=== PATIENT | female | born 1940 | race Caucasian/White ===

== ENCOUNTER 2016-08-20 10:52 | Outpatient (CLI) | payer MEDICARE ==
[2016-08-20 11:56] LABS: ALT (SGPT) 19 U/L (0-55); AST (SGOT) 19 U/L (5-34); Albumin 3.9 g/dL (3.4-4.8); Alkaline Phosphatase 61 U/L (40-150); Anion Gap 13 mmol/L (10-20); BUN (Urea Nitrogen) 25 mg/dL (9.8-20.1); Bilirubin, Total 0.6 mg/dL (0.2-1.2); Calc. Creatinine Clearance 0 mL/min (70-130); Calcium 9.2 mg/dL (7.8-10.44); Carbon Dioxide 23 mmol/L (23-31); Cardiac Risk 4.4 (Less than 4.5); Chloride 110 mmol/L (98-107); Cholesterol 137 mg/dL (< 200 Desired); Estimated GFR-MDRD 50; Globulin 2.9 g/dL (2.4-3.5); Glucose 112 mg/dL (83-110); HDL Cholesterol 31 mg/dL (>60 Neg Risk); LDL Cholesterol, Calculated 55 mg/dL; Potassium 4.5 mmol/L (3.5-5.1); Protein, Total 6.8 g/dL (5.8-8.1); Sodium 141 mmol/L (136-145); Triglycerides 257 mg/dL (Less than 150)
[2016-08-20 12:14] LABS: #Basophils 0.1 thou/uL (0.0-0.2); #Eosinphils 0.1 thou/uL (0.0-0.7); #Lymphocytes 2.1 thou/uL (1.20-3.40); #Monocytes 0.4 thou/uL (0.11-0.59); #Neutrophils 3.5 thou/uL (1.40-6.50); %Basophils 1.2 % (0.0-1.0); %Eosinophils 2.1 % (0.0-10.0); %Lymphocytes 33.3 % (21.0-51.0); %Monocytes 6.7 % (0.0-10.0); %Neutrophils 56.7 % (42.0-75.0); Hemoglobin 13.7 g/dL (12.0-16.0); Mean Corpuscular HGB CONC 33.6 g/dL (32.0-36.0); Mean Corpuscular Hemoglobin 30.6 pg (27.0-31.0); Mean Platelet Volume 10.5 fL (7.4-10.4); Platelet Count 198 thou/uL (130-400); RBC Distribution Width 11.7 % (11.5-14.5); Red Blood Cell (RBC) Count 4.47 mill/uL (4.20-5.40); White Blood Cell (WBC) Count 6.2 thou/uL (4.8-10.8)
== END 2016-08-20 10:53 ==
LOC: HPCALD 10:52
PROVIDERS: ATTEND Family Medicine
DX: I10 Essential (primary) hypertension (principal); E78.5 Hyperlipidemia, unspecified
CPT/HCPCS: 36415; 80053; 80061; 84443; 85025

== ENCOUNTER 2017-02-21 08:31 | Outpatient (CLI) | payer MEDICARE ==
[2017-02-21 11:55] LABS: Anion Gap 15 mmol/L (10-20); BUN (Urea Nitrogen) 22 mg/dL (9.8-20.1); Calc. Creatinine Clearance 0 mL/min (70-130); Calcium 9.4 mg/dL (7.8-10.44); Carbon Dioxide 23 mmol/L (23-31); Chloride 108 mmol/L (98-107); Estimated GFR-MDRD 52; Glucose 111 mg/dL (83-110); Potassium 4.5 mmol/L (3.5-5.1); Sodium 141 mmol/L (136-145)
[2017-02-21 12:14] LABS: Hemoglobin A1c 6.3 % (4.0-6.0)
== END 2017-02-21 08:32 | disposition home or self-care (01) ==
LOC: HPCALD 08:31
PROVIDERS: ATTEND Family Medicine
DX: R73.01 Impaired fasting glucose (principal)
CPT/HCPCS: 36415; 80048; 83036

== ENCOUNTER 2017-09-25 10:05 | Emergency (ER) | payer MEDICARE ==
[2017-09-25] MEDS ORDERED: Lidocaine 1% w/Epinephrine 1:100K 30 ML VIAL ONE (12:05)
--- NOTE | 2017-09-25 18:44 | CT ---
CT OF THE BRAIN WITHOUT CONTRAST: 09/25/17 The ventricle are normal in size with no shift. No intracranial bleeding or extra-axial hematoma was seen. There is no mass, sign of acute stroke, or edema. Deep white matter chronic ischemic change is minimal. The calvarium appears intact. The sphenoid sinus and mastoid air cells are clear. There is s light deviation of the nasal septum towards the right, probably not a new finding. IMPRESSION: No acute intracranial findings. POS: HOME
--- NOTE | 2017-09-25 18:45 | CT ---
CT OF THE FACIAL BONES: 09/25/[address] of the face was done for evaluation following trauma. Axial slices were acquired, then lester nal and sagittal reconstructions were done. No facial fractures were seen. The orbital rims and zygomatic arches appear intact, as does the josep ble. The paranasal sinuses are clear. No nasal fractures are seen, though there is some mild deviatio n of the septum towards the right, probably not a new finding. The retroorbital areas appear normal. IMPRESSION: No significant bony findings. POS: HOME
--- NOTE | 2017-09-25 19:05 | RAD ---
RIGHT CLAVICLE 09/25/17 Two views fail to demonstrate any clavicular fracture. There is abundant arthritic change in the AC j oint. There is no widening of the joint. 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 POS: HOME
--- NOTE | 2017-09-25 19:34 | CT ---
CT OF THE CERVICAL SPINE 09/25/[address] of the cervical spine was performed for evaluation following trauma. Axial slices were acqu ired followed by coronal and sagittal reconstructions. There is curvature of the spine which distorts it slightly. Abundant degenerative changes are seen i n the facet joints of this patient's spine. No fracture, dislocation, or disc space narrowing was see n. The C1 to dens distance is normal and the soft tissues are normal in thickness. Prominent anterior osteophytes are seen particularly at the C4 and C5 levels. Findings by level follows: C1-C2: No acute findings. C2-C3: Facet arthritis worst on the right side with mild right foraminal narrowing. C3-C4: Bilateral facet arthritis, worst on the left with moderate left foraminal narrowing. C4-C5: Bilateral facet arthritis, worst on the right with moderate to severe right foraminal narrowin g. C5-C6: Bilateral facet arthritis, worst on the right. The foramina are patent. The AP diameter of the canal is acceptable. C6-C7: Patent foramina. Facet arthritis worst on the right. C7-T1: No acute findings. T1-T2: No acute findings. Lung apices are clear. The soft tissues of the neck raise a question of a lucent area in the right lo be of the thyroid gland. The finding is indeterminate and would be best served by an elective thyroid ultrasound. IMPRESSION: 1. Significant degenerative changes, mainly involving the facet joints and neural foramina but n o acute traumatic findings. 2. Vague lucency in the right lobe of the thyroid gland. It might be prudent to schedule an elec tive thyroid ultrasound to assess this further. Code T POS: HOME
--- NOTE | 2017-09-25 20:13 | CT ---
CT OF THE LUMBAR SPINE 09/25/[address] of the lumbar spine was performed for evaluation following trauma. Axial slices were acquir ed, then coronal and sagittal reconstructions were done. No fracture, dislocation, or acute bony change was seen. There is slight disc space narrowing at L4-L 5. Some calcification is seen in the abdominal aorta but there is no aneurysm. Findings by level foll ow T11-T12: Large anterior osteophyte but no acute findings otherwise. T12-L1: No acute findings. L1-L2: No acute findings. L2-L3: Moderately severe facet arthritis with some mild to moderate right foraminal narrowing. There does not appear to be impingement. L3-L4: Facet arthritis worst on the right side with some mild concentric bulging of the disc. Slight foraminal narrowing bilaterally but probably no impingement. L4-L5: Similar findings to the prior level with facet arthritis worst on the right. There does appear to be significant foraminal narrowing on the right side by osteophytes. L5-S1: Concentrically bulging disc, perhaps a little more to the right than the left. Significant fac et arthritis, particularly on the right side which does appears to impinge upon the thecal sac and pe rhaps the exiting nerve root. The visible abdominopelvic structures showed no acute changes. There may be a parapelvic cyst in the right kidney, but this would be better assessed by ultrasound. There is a subcentimeter hyperdensity in the left kidney that is probably a small hemorrhagic cyst. IMPRESSION: Extensive degenerative changes but no acute traumatic findings. POS: HOME
== END 2017-09-25 12:53 | disposition home or self-care (01) ==
LOC: BURERS 10:05
DX: S01.411A Laceration without foreign body of right cheek and temporomandibular area, initial encounter (principal); S16.1XXA Strain of muscle, fascia and tendon at neck level, initial encounter; S39.012A Strain of muscle, fascia and tendon of lower back, initial encounter; E78.5 Hyperlipidemia, unspecified; I10 Essential (primary) hypertension; Z79.84 Long term (current) use of oral hypoglycemic drugs; Z79.899 Other long term (current) drug therapy; W18.30XA Fall on same level, unspecified, initial encounter
CPT/HCPCS: 12013; 70450; 70486; 72125; 72131; J2001

== ENCOUNTER 2018-08-02 20:24 | Emergency (ER) | payer MEDICARE ==
[2018-08-02] MEDS ORDERED: Ondansetron ODT 4 MG TAB ONE (21:20)
--- NOTE | 2018-08-02 21:31 | CT ---
CT BRAIN 08/02/18 HISTORY: Headache. Noncontrast enhanced CT images of the brain is obtained on 08/02/18. Comparison made to previous exam from 09/25/17. Noncontrast enhanced CT images of the brain demonstrate no evidence of acute intracranial masses, hem orrhages, strokes or contusions. IMPRESSION: Normal CT brain. POS: [facility]
[2018-08-02 21:41] LABS: #Basophils 0.1 thou/uL (0.0-0.2); #Eosinphils 0.1 thou/uL (0.0-0.7); #Monocytes 0.6 thou/uL (0.11-0.59); #Neutrophils 5.2 thou/uL (1.40-6.50); %Basophils 0.8 % (0.0-1.0); %Eosinophils 1.6 % (0.0-10.0); %Lymphocytes 25.2 % (21.0-51.0); %Neutrophils 65.4 % (42.0-75.0); Hemoglobin 13.5 g/dL (12.0-16.0); Mean Corpuscular Hemoglobin 29.9 pg (27.0-31.0); Mean Platelet Volume 10.7 fL (7.4-10.4); Platelet Count 164 thou/uL (130-400); RBC Distribution Width 12.7 % (11.5-14.5); Red Blood Cell (RBC) Count 4.52 mill/uL (4.20-5.40); White Blood Cell (WBC) Count 7.9 thou/uL (4.8-10.8)
[2018-08-02 21:56] LABS: ALT (SGPT) 13 U/L (8-55); AST (SGOT) 17 U/L (5-34); Alkaline Phosphatase 66 U/L (40-150); Anion Gap 14 mmol/L (10-20); BUN (Urea Nitrogen) 27 mg/dL (9.8-20.1); Bilirubin, Total 0.5 mg/dL (0.2-1.2); CK (CPK) 50 U/L (29-168); Calc. Creatinine Clearance 0 mL/min (70-130); Carbon Dioxide 28 mmol/L (23-31); Chloride 106 mmol/L (98-107); Estimated GFR-MDRD 47; Glucose 110 mg/dL (83-110); Potassium 3.8 mmol/L (3.5-5.1); Sodium 144 mmol/L (136-145)
== END 2018-08-02 23:11 | disposition short-term general hospital (02) ==
LOC: BURERS 20:24
DX: I16.0 Hypertensive urgency (principal); R11.2 Nausea with vomiting, unspecified; R42 Dizziness and giddiness; E11.9 Type 2 diabetes mellitus without complications; E78.5 Hyperlipidemia, unspecified; I10 Essential (primary) hypertension; Z79.84 Long term (current) use of oral hypoglycemic drugs; Z79.82 Long term (current) use of aspirin; Z79.899 Other long term (current) drug therapy
CPT/HCPCS: 70450; 80053; 82550; 84484; 85025; 93005; Q0162

== ENCOUNTER 2022-03-28 11:39 | Emergency (ER) | payer MEDICARE ==
[2022-03-28 12:24] LABS: #Basophils 0.1 thou/uL (0.0-0.2); #Eosinphils 0.1 thou/uL (0.0-0.7); #Lymphocytes 1.4 thou/uL (1.20-3.40); #Monocytes 0.6 thou/uL (0.11-0.59); #Neutrophils 4.9 thou/uL (1.40-6.50); %Basophils 1.1 % (0.0-1.0); %Lymphocytes 19.5 % (21.0-51.0); %Monocytes 8.2 % (0.0-10.0); %Neutrophils 70.2 % (42.0-75.0); Hemoglobin 13.7 g/dL (12.0-16.0); Mean Corpuscular HGB CONC 32.9 g/dL (32.0-36.0); Mean Corpuscular Hemoglobin 30.9 pg (27.0-31.0); Mean Corpuscular Volume 93.8 fl (78.0-98.0); Mean Platelet Volume 10.2 fL (7.4-10.4); Platelet Count 186 thou/uL (130-400); RBC Distribution Width 12.4 % (11.5-14.5); Red Blood Cell (RBC) Count 4.45 mill/uL (4.20-5.40)
[2022-03-28 12:40] LABS: ALT (SGPT) 17 U/L (8-55); AST (SGOT) 19 U/L (5-34); Albumin 3.9 g/dL (3.4-4.8); Alkaline Phosphatase 53 U/L (40-110); Anion Gap 13 mmol/L (10-20); BUN (Urea Nitrogen) 30 mg/dL (9.8-20.1); Bilirubin, Total 0.6 mg/dL (0.2-1.2); Calc. Creatinine Clearance 0 mL/min (70-130); Calcium 9.7 mg/dL (7.8-10.44); Carbon Dioxide 23 mmol/L (23-31); Chloride 108 mmol/L (98-107); Estimated GFR 39; Globulin 3.1 g/dL (2.4-3.5); Glucose 113 mg/dL (83-110); Lipase 18 U/L (8-78); Sodium 140 mmol/L (136-145)
[2022-03-28] MEDS ORDERED: Meclizine HCl 25 MG TAB ONE (12:58)
[2022-03-28] MEDS ORDERED: Metoclopramide HCl 10 MG TAB ONE (12:58)
[2022-03-28 13:42] LABS: Bilirubin Negative (Negative); Blood, Urine Negative (Negative); Clarity Clear (Clear); Glucose, Urine (Dipstick) Negative (Negative); Ketone, Urine Negative (Negative); Leukocyte Small (Negative); Nitrite Negative (Negative); Protein, Urine (Dipstick) 100 mg/dL (Neg-Trace); Urobilinogen 0.2 mg/dL (Less than 2); pH, Urine 6.5 (5.0-9.0)
[2022-03-28 13:54] LABS: Bacteria/HPF 1+ HPF (None Seen); RBC/HPF 0-3 HPF (0-3)
[2022-03-28 13:55] LABS: Mucous/LPF Few LPF (<2+)
[2022-03-28] MEDS ORDERED: Cephalexin 250 MG CAP ONE (14:04)
== END 2022-03-28 14:11 | disposition home or self-care (01) ==
LOC: BURERS 11:39
DX: E86.0 Dehydration (principal); E11.9 Type 2 diabetes mellitus without complications; E78.5 Hyperlipidemia, unspecified; I10 Essential (primary) hypertension; Z79.899 Other long term (current) drug therapy; Z79.84 Long term (current) use of oral hypoglycemic drugs; Z79.82 Long term (current) use of aspirin
CPT/HCPCS: 36415; 70450; 74176; 80053; 81003; 81015; 83605; 83690; 84484; 85025; 87086; 93005

== ENCOUNTER 2022-09-29 07:45 | Emergency (ER) | payer MEDICARE, OTHER ==
[2022-09-29] MEDS ORDERED: Boostrix 0.5 ML (Tdap) VIAL (>/=7 yrs of age) ONE (08:07)
[2022-09-29] MEDS ORDERED: Lidocaine 1% PF 5 ML VIAL ONE ×2 (08:14→10:58)
[2022-09-29 08:32] LABS: #Basophils 0.1 thou/uL (0.0-0.2); #Lymphocytes 1.4 thou/uL (1.20-3.40); #Monocytes 0.5 thou/uL (0.11-0.59); #Neutrophils 7.3 thou/uL (1.40-6.50); %Basophils 0.6 % (0.0-1.0); %Eosinophils 0.5 % (0.0-10.0); %Lymphocytes 14.8 % (21.0-51.0); %Monocytes 5.7 % (0.0-10.0); %Neutrophils 78.4 % (42.0-75.0); Hemoglobin 13.1 g/dL (12.0-16.0); Mean Corpuscular HGB CONC 33.8 g/dL (32.0-36.0); Mean Corpuscular Hemoglobin 30.9 pg (27.0-31.0); Mean Corpuscular Volume 91.6 fl (78.0-98.0); Mean Platelet Volume 10.2 fL (7.4-10.4); Platelet Count 183 10x3/uL (130-400); RBC Distribution Width 11.8 % (11.5-14.5); Red Blood Cell (RBC) Count 4.23 mill/uL (4.20-5.40); White Blood Cell (WBC) Count 9.3 10x3/uL (4.8-10.8)
[2022-09-29 08:50] LABS: ALT (SGPT) 16 U/L (8-55); AST (SGOT) 16 U/L (5-34); Albumin 3.9 g/dL (3.4-4.8); Alkaline Phosphatase 55 U/L (40-110); Anion Gap 15 mmol/L (10-20); BUN (Urea Nitrogen) 30 mg/dL (9.8-20.1); Bilirubin, Total 0.5 mg/dL (0.2-1.2); Calc. Creatinine Clearance 0 mL/min (70-130); Calcium 9.5 mg/dL (7.8-10.44); Carbon Dioxide 19 mmol/L (23-31); Chloride 110 mmol/L (98-107); Estimated GFR 51; Globulin 3.3 g/dL (2.4-3.5); Glucose 136 mg/dL (83-110); Potassium 3.9 mmol/L (3.5-5.1); Protein, Total 7.2 g/dL (5.8-8.1); Sodium 140 mmol/L (136-145)
[2022-09-29] MEDS ORDERED: Bacitracin 1 PK ONE (10:27)
[2022-09-29 10:29] LABS: Bilirubin Negative (Negative); Blood, Urine Negative (Negative); Clarity Clear (Clear); Glucose, Urine (Dipstick) Negative (Negative); Ketone, Urine Negative (Negative); Leukocyte Small (Negative); Nitrite Negative (Negative); Protein, Urine (Dipstick) Negative (Neg-Trace); Urobilinogen 0.2 mg/dL (Less than 2)
[2022-09-29 10:38] LABS: Bacteria/HPF Rare-Few HPF (None Seen); RBC/HPF None Seen HPF (0-3)
[2022-09-29] MEDS ORDERED: cefTRIAXone (ROCEPHIN) 1 GM VIAL ONE (10:58)
[2022-09-29] MEDS ORDERED: Lidocaine 1% (PF) 30 ML VIAL ONE (10:58)
== END 2022-09-29 11:37 | disposition home or self-care (01) ==
LOC: BURERS 07:45
DX: S09.90XA Unspecified injury of head, initial encounter (principal); S61.212A Laceration without foreign body of right middle finger without damage to nail, initial encounter; N39.0 Urinary tract infection, site not specified; E11.9 Type 2 diabetes mellitus without complications; Z79.84 Long term (current) use of oral hypoglycemic drugs; W01.10XA Fall on same level from slipping, tripping and stumbling with subsequent striking against unspecified object, initial encounter
CPT/HCPCS: 12001; 36415; 70450; 71045; 72125; 72170; 80053; 81003; 81015; 85025; 85610; 87086; 90471; 90715; 93005; 96372; J0696; J2001

== ENCOUNTER 2022-10-08 10:47 | Emergency (ER) | payer MEDICARE | END 2022-10-08 11:52 | disposition home or self-care (01) | LOC: BURERS 10:47 | DX: S61.212D Laceration without foreign body of right middle finger without damage to nail, subsequent encounter (principal); E11.9 Type 2 diabetes mellitus without complications; W19.XXXD Unspecified fall, subsequent encounter; Z79.82 Long term (current) use of aspirin; Z79.84 Long term (current) use of oral hypoglycemic drugs; Z79.899 Other long term (current) drug therapy | CPT/HCPCS: 99282 ==

== ENCOUNTER 2022-12-12 14:39 | Emergency (ER) | payer MEDICARE ==
[2022-12-12 16:12] LABS: #Basophils 0.1 thou/uL (0.0-0.2); #Eosinphils 0.1 thou/uL (0.0-0.7); #Lymphocytes 1.7 thou/uL (1.20-3.40); #Monocytes 0.6 thou/uL (0.11-0.59); #Neutrophils 5.5 thou/uL (1.40-6.50); %Basophils 0.9 % (0.0-1.0); %Eosinophils 0.9 % (0.0-10.0); %Lymphocytes 21.2 % (21.0-51.0); %Monocytes 7.3 % (0.0-10.0); %Neutrophils 69.7 % (42.0-75.0); Hemoglobin 12.7 g/dL (12.0-16.0); Mean Corpuscular HGB CONC 33.7 g/dL (32.0-36.0); Mean Corpuscular Hemoglobin 30.3 pg (27.0-31.0); Mean Platelet Volume 9.5 fL (7.4-10.4); Platelet Count 182 10x3/uL (130-400); RBC Distribution Width 11.9 % (11.5-14.5); White Blood Cell (WBC) Count 7.8 10x3/uL (4.8-10.8)
[2022-12-12 16:20] LABS: Prothrombin Time 13.9 sec (12.0-14.7)
[2022-12-12 16:30] LABS: ALT (SGPT) 16 U/L (8-55); AST (SGOT) 14 U/L (5-34); Albumin 3.8 g/dL (3.4-4.8); Alkaline Phosphatase 58 U/L (40-110); Anion Gap 15 mmol/L (10-20); BUN (Urea Nitrogen) 31 mg/dL (9.8-20.1); Bilirubin, Total 0.6 mg/dL (0.2-1.2); Calc. Creatinine Clearance 0 mL/min (70-130); Calcium 9.6 mg/dL (7.8-10.44); Carbon Dioxide 22 mmol/L (23-31); Chloride 106 mmol/L (98-107); Estimated GFR 40; Glucose 111 mg/dL (83-110); Lipase 11 U/L (8-78); Potassium 4.6 mmol/L (3.5-5.1); Protein, Total 6.8 g/dL (5.8-8.1); Sodium 138 mmol/L (136-145)
[2022-12-12 17:22] LABS: Bilirubin Negative (Negative); Blood, Urine Negative (Negative); Clarity Clear (Clear); Glucose, Urine (Dipstick) Negative (Negative); Ketone, Urine Negative (Negative); Leukocyte Negative (Negative); Nitrite Negative (Negative); Protein, Urine (Dipstick) Negative (Neg-Trace); Urobilinogen 0.2 mg/dL (Less than 2)
[2022-12-12 17:31] LABS: Bacteria/HPF 1+ HPF (None Seen); CAUTI Indications for Culture Acute Hematuria; Mucous/LPF Rare LPF (<2+); RBC/HPF 0-3 HPF (0-3); Squamous Epithelial 0-3 HPF (0-3); WBC/HPF 0-3 HPF (0-3)
[2022-12-12 17:32] LABS: Urine Culture Reflex No No
== END 2022-12-12 18:13 | disposition home or self-care (01) ==
LOC: BURERS 14:39
DX: S09.90XA Unspecified injury of head, initial encounter (principal); E11.9 Type 2 diabetes mellitus without complications; W18.2XXA Fall in (into) shower or empty bathtub, initial encounter
CPT/HCPCS: 36415; 70450; 71045; 72125; 72170; 80053; 81001; 83605; 83690; 85025; 85610; 93005

== ENCOUNTER 2023-12-13 08:02 | Emergency (ER) | payer MEDICARE, OTHER ==
[2023-12-13 08:47] LABS: #Basophils 0.1 thou/uL (0.0-0.2); #Lymphocytes 0.9 thou/uL (1.20-3.40); #Monocytes 0.5 thou/uL (0.11-0.59); #Neutrophils 9.5 thou/uL (1.40-6.50); %Basophils 0.6 % (0.0-1.0); %Eosinophils 0.1 % (0.0-10.0); %Lymphocytes 7.8 % (21.0-51.0); %Monocytes 4.6 % (0.0-10.0); Hematocrit 37.8 % (36.0-47.0); Hemoglobin 12.7 g/dL (12.0-16.0); Mean Corpuscular HGB CONC 33.6 g/dL (32.0-36.0); Mean Corpuscular Hemoglobin 29.2 pg (27.0-31.0); Mean Corpuscular Volume 86.8 fl (78.0-98.0); Mean Platelet Volume 9.2 fL (7.4-10.4); Platelet Count 244 10x3/uL (130-400); RBC Distribution Width 11.5 % (11.5-14.5); Red Blood Cell (RBC) Count 4.36 mill/uL (4.20-5.40)
[2023-12-13 08:57] LABS: INR-International Normal Ratio 1.1; Prothrombin Time 14.4 sec (12.0-14.7)
[2023-12-13 09:07] LABS: Troponin I 0.012 ng/mL (< 0.028)
[2023-12-13 09:12] LABS: ALT (SGPT) 13 U/L (8-55); AST (SGOT) 18 U/L (5-34); Albumin 3.8 g/dL (3.4-4.8); Alkaline Phosphatase 59 U/L (40-110); Anion Gap 18 mmol/L (10-20); BUN (Urea Nitrogen) 20 mg/dL (9.8-20.1); Bilirubin, Total 0.5 mg/dL (0.2-1.2); Calc. Creatinine Clearance 0 mL/min (70-130); Calcium 9.4 mg/dL (7.8-10.44); Carbon Dioxide 18 mmol/L (23-31); Chloride 101 mmol/L (98-107); Estimated GFR 46; Globulin 3.1 g/dL (2.4-3.5); Glucose 133 mg/dL (83-110); Potassium 4.3 mmol/L (3.5-5.1); Protein, Total 6.9 g/dL (5.8-8.1); Sodium 133 mmol/L (136-145)
[2023-12-13 11:01] LABS: Bilirubin Negative (Negative); Blood, Urine Negative (Negative); Clarity Clear (Clear); Glucose, Urine (Dipstick) Negative (Negative); Ketone, Urine Negative (Negative); Leukocyte Trace (Negative); Nitrite Negative (Negative); Protein, Urine (Dipstick) Negative (Neg-Trace); Specific Gravity, Urine 1.015 (1.005-1.030); Urobilinogen 0.2 mg/dL (Less than 2); pH, Urine 7.5 (5.0-9.0)
[2023-12-13 11:25] LABS: Bacteria/HPF Rare-Few HPF (None Seen); CAUTI Indications for Culture Dysuria,urgency,freq; RBC/HPF 0-3 HPF (0-3); Squamous Epithelial 0-3 HPF (0-3); WBC/HPF 0-3 HPF (0-3)
[2023-12-13 11:26] LABS: Urine Culture Reflex No No
[2023-12-13] MEDS ORDERED: Acetaminophen 500 MG TAB ONE (12:11)
[2023-12-13] MEDS ORDERED: Iopamidol 370 76% 100 ML VIAL ONE (13:04)
== END 2023-12-13 13:30 | disposition home or self-care (01) ==
LOC: BURERS 08:02
DX: S29.9XXA Unspecified injury of thorax, initial encounter (principal); I10 Essential (primary) hypertension; E11.9 Type 2 diabetes mellitus without complications; E78.5 Hyperlipidemia, unspecified; W18.2XXA Fall in (into) shower or empty bathtub, initial encounter; Y93.89 Activity, other specified; Y92.002 Bathroom of unspecified non-institutional (private) residence as the place of occurrence of the external cause; Z79.82 Long term (current) use of aspirin; Z79.84 Long term (current) use of oral hypoglycemic drugs; Z79.899 Other long term (current) drug therapy
CPT/HCPCS: 36415; 70450; 71045; 71260; 74177; 80053; 81001; 84484; 85025; 85610; 93005; 94760; Q9967

== ENCOUNTER 2024-04-06 08:47 | Outpatient (CLI) | payer MEDICARE | END 2024-04-06 08:48 | disposition home or self-care (01) | LOC: BURCT 08:47 | PROVIDERS: ATTEND Family Medicine | DX: M47.22 Other spondylosis with radiculopathy, cervical region (principal); M47.816 Spondylosis without myelopathy or radiculopathy, lumbar region; M47.817 Spondylosis without myelopathy or radiculopathy, lumbosacral region; M48.02 Spinal stenosis, cervical region | CPT/HCPCS: 72125; 72131 ==

== ENCOUNTER 2024-06-04 14:30 | Observation (INO) | payer MEDICARE ==
[2024-06-04 15:05] LABS: #Basophils 0.1 thou/uL (0.0-0.2); #Eosinophils 0.1 thou/uL (0.0-0.7); #Lymphocytes 1.5 thou/uL (1.20-3.40); #Monocytes 0.5 thou/uL (0.11-0.59); #Neutrophils 6.6 thou/uL (1.40-6.50); %Basophils 0.7 % (0.0-1.0); %Eosinophils 0.7 % (0.0-10.0); %Lymphocytes 16.8 % (21.0-51.0); %Monocytes 5.7 % (0.0-10.0); Hematocrit 37.1 % (36.0-47.0); Hemoglobin 12.8 g/dL (12.0-16.0); Mean Corpuscular HGB CONC 34.6 g/dL (32.0-36.0); Mean Corpuscular Volume 86.8 fl (78.0-98.0); Platelet Count 230 10x3/uL (130-400); RBC Distribution Width 11.2 % (11.5-14.5); Red Blood Cell (RBC) Count 4.27 mill/uL (4.20-5.40); White Blood Cell (WBC) Count 8.7 10x3/uL (4.8-10.8)
[2024-06-04 15:24] LABS: ALT (SGPT) 26 U/L (8-55); AST (SGOT) 27 U/L (5-34); Albumin 3.5 g/dL (3.4-4.8); Alkaline Phosphatase 62 U/L (40-110); Anion Gap 17 mmol/L (10-20); BUN (Urea Nitrogen) 19 mg/dL (9.8-20.1); Bilirubin, Total 0.6 mg/dL (0.2-1.2); Calc. Creatinine Clearance 0 mL/min (70-130); Calcium 9.8 mg/dL (7.8-10.44); Carbon Dioxide 19 mmol/L (23-31); Chloride 104 mmol/L (98-107); Estimated GFR 48; Globulin 3.4 g/dL (2.4-3.5); Glucose 161 mg/dL (83-110); Lipase 6 U/L (8-78); Potassium 3.7 mmol/L (3.5-5.1); Protein, Total 6.9 g/dL (5.8-8.1); Sodium 136 mmol/L (136-145)
[2024-06-04 15:32] LABS: Bilirubin Negative (Negative); Blood, Urine Negative (Negative); Clarity Clear (Clear); Glucose, Urine (Dipstick) Negative (Negative); Ketone, Urine Negative (Negative); Leukocyte Small (Negative); Nitrite Negative (Negative); Protein, Urine (Dipstick) 100 mg/dL (Neg-Trace)
[2024-06-04 15:39] LABS: CAUTI Indications for Culture Alt mental st,lethar; RBC/HPF 0-3 HPF (0-3)
[2024-06-04 15:41] LABS: Bacteria/HPF 2+ HPF (None Seen); Renal Epithelial 0-3 HPF (None Seen)
[2024-06-04 15:43] LABS: Urine Culture Reflex Yes Yes
[2024-06-04] MEDS: Sodium Chloride 0.9% 1,000 ML IV SCH (20:15)
[2024-06-04] MEDS ORDERED: Ondansetron ODT 4 MG TAB SL PRN (20:15)
[2024-06-04] MEDS ORDERED: Ondansetron PF 4 MG/2 ML Vial IVP PRN (20:15)
[2024-06-04] MEDS ORDERED: Ketorolac Tromethamine 30 MG (1 mL) VIAL IVP PRN (20:15)
[2024-06-04] MEDS ORDERED: Acetaminophen 325 MG TAB PO PRN (20:15)
[2024-06-04] MEDS: Ondansetron PF 4 MG/2 ML Vial ONE (21:07)
[2024-06-04] MEDS: cefTRIAXone (ROCEPHIN) 2 GM VIAL ONE (21:08)
[2024-06-04] MEDS: Bisacodyl 10 MG SUPP ONE (21:08)
[2024-06-04] MEDS: Ketorolac Tromethamine 30 MG (1 mL) VIAL ONE (21:08)
[2024-06-04] MEDS: Fleet Saline Enema 133 ML BOT ONE (21:08)
[2024-06-05 00:31] VITALS: BMI 26.7
[2024-06-05 07:31] VITALS: BMI 26.7
[2024-06-05] MEDS ORDERED: Calcium Carbonate 500 MG ChewTAB PO PRN (07:56)
[2024-06-05] MEDS ORDERED: Acetaminophen 325 MG TAB PO PRN (09:17)
[2024-06-05] MEDS: hydrALAZINE 25 MG TAB PO SCH (09:45)
[2024-06-05] MEDS: Famotidine 20 MG TAB PO SCH (09:45)
[2024-06-05] MEDS: Lactulose 20 GM (30 mL) UDCUP PO SCH (09:45)
[2024-06-05 09:59] LABS: Anion Gap 12 mmol/L (10-20); BUN (Urea Nitrogen) 16 mg/dL (9.8-20.1); Calc. Creatinine Clearance 54 mL/min (70-130); Calcium 8.3 mg/dL (7.8-10.44); Carbon Dioxide 19 mmol/L (23-31); Chloride 112 mmol/L (98-107); Estimated GFR 67; Glucose 145 mg/dL (83-110); Potassium 3.9 mmol/L (3.5-5.1); Sodium 139 mmol/L (136-145)
[2024-06-05] MEDS: cefTRIAXone\\ROCEPHIN 2 GM in Sodium Chloride 0.9% 100 ML IVPB SCH (12:34)
[2024-06-05] MEDS: metFORMIN 500 MG TAB PO SCH (17:21)
[2024-06-05] MEDS: Aspirin 81 mg Enteric Coated Tablet PO SCH (20:33)
[2024-06-05] MEDS: Amlodipine 5 MG TAB PO SCH (20:34)
[2024-06-06] MEDS: Lactulose 20 GM (30 mL) UDCUP PO PRN (08:47)
[2024-06-06] MEDS: Lactulose 20 GM (30 mL) UDCUP PO SCH (21:26)
[2024-06-08 16:02] VITALS: BP 153/87; TEMP 98.6
== END 2024-06-08 15:50 | disposition home or self-care (01) ==
LOC: BURERS 14:30 → BURMED 17:00
PROVIDERS: ADMIT Family Medicine; ATTEND Nurse Practitioner
DX: N30.00 Acute cystitis without hematuria (principal); E11.9 Type 2 diabetes mellitus without complications; I10 Essential (primary) hypertension; K59.01 Slow transit constipation; E86.0 Dehydration; R41.81 Age-related cognitive decline; E78.5 Hyperlipidemia, unspecified; Z79.82 Long term (current) use of aspirin; Z79.899 Other long term (current) drug therapy; Z98.890 Other specified postprocedural states; Z79.84 Long term (current) use of oral hypoglycemic drugs; Z96.652 Presence of left artificial knee joint
CPT/HCPCS: 51701; 70450; 71045; 74176; 80048; 80053; 81001; 83605; 83690; 85025; 87040; 87077; 87086; 87428; 93005; 96361; 96365; 96366; 96375; 96376 ×3; 97110; 97116; 97530 ×3; 97535; 99285; G0378 ×5; J0696 ×5; J1885; J2405; J7030 ×2; 36415

== ENCOUNTER 2025-01-22 11:38 | Emergency (ER) | payer MEDICARE, OTHER ==
[2025-01-22 12:22] LABS: #Basophils 0.1 thou/uL (0.0-0.2); #Eosinophils 0.1 thou/uL (0.0-0.7); #Lymphocytes 1.7 thou/uL (1.20-3.40); #Monocytes 1.1 thou/uL (0.11-0.59); #Neutrophils 6.5 thou/uL (1.40-6.50); %Basophils 1.4 % (0.0-1.0); %Eosinophils 0.6 % (0.0-10.0); %Lymphocytes 18.1 % (21.0-51.0); %Monocytes 11.2 % (0.0-10.0); %Neutrophils 68.8 % (42.0-75.0); Hematocrit 35.6 % (36.0-47.0); Hemoglobin 12.4 g/dL (12.0-16.0); Mean Corpuscular Hemoglobin 29.4 pg (27.0-31.0); Mean Corpuscular Volume 84.4 fl (78.0-98.0); Platelet Count 241 10x3/uL (130-400); Red Blood Cell (RBC) Count 4.21 mill/uL (4.20-5.40); White Blood Cell (WBC) Count 9.4 10x3/uL (4.8-10.8)
[2025-01-22 12:37] LABS: ALT (SGPT) 123 U/L (Less than 34); AST (SGOT) 160 U/L (11-34); Albumin 3.1 g/dL (3.1-4.5); Alkaline Phosphatase 213 U/L (40-110); Anion Gap 16 mmol/L (10-20); BUN (Urea Nitrogen) 19 mg/dL (9.8-20.1); Bilirubin, Total 0.8 mg/dL (0.3-1.2); Calc. Creatinine Clearance 0 mL/min (70-130); Calcium 9.0 mg/dL (7.8-10.44); Carbon Dioxide 24 mmol/L (23-31); Chloride 99 mmol/L (98-107); Globulin 3.6 g/dL (2.4-3.5); Glucose 125 mg/dL (83-110); Lipase 7 U/L (8-78); Potassium 4.0 mmol/L (3.5-5.1); Sodium 135 mmol/L (136-145); Troponin I Less than 0.010 ng/mL (< 0.028)
[2025-01-22 13:20] LABS: Glucose, Urine (Dipstick) Negative (Negative); Leukocyte Negative (Negative); Protein, Urine (Dipstick) Trace mg/dL (Neg-Trace); Specific Gravity, Urine 1.020 (1.005-1.030)
[2025-01-22 13:22] LABS: Bacteria/HPF Rare-Few HPF (None Seen); CAUTI Indications for Culture Dysuria,urgency,freq; RBC/HPF 0-3 HPF (0-3); WBC/HPF 0-3 HPF (0-3)
[2025-01-22 13:24] LABS: Urine Culture Reflex No No
[2025-01-22] MEDS ORDERED: cefTRIAXone (ROCEPHIN) 1 GM VIAL ONE (14:39)
== END 2025-01-22 15:08 | disposition short-term general hospital (02) ==
LOC: BURERS 11:38
DX: K81.0 Acute cholecystitis (principal); E11.9 Type 2 diabetes mellitus without complications; I10 Essential (primary) hypertension; E78.5 Hyperlipidemia, unspecified; Z79.82 Long term (current) use of aspirin; Z79.84 Long term (current) use of oral hypoglycemic drugs; Z79.899 Other long term (current) drug therapy
CPT/HCPCS: 74177; 80053; 81001; 83605; 83690; 83880; 84484; 85025; 93005; 96365; J0696

== ENCOUNTER 2025-01-27 08:34 | Inpatient (IN) | payer OTHER ==
[2025-01-27 22:40] VITALS: BMI 22.6
[2025-01-28 07:08] LABS: #Basophils 0.1 thou/uL (0.0-0.2); #Eosinophils 0.2 thou/uL (0.0-0.7); #Lymphocytes 2.1 thou/uL (1.20-3.40); #Monocytes 0.8 thou/uL (0.11-0.59); #Neutrophils 4.6 thou/uL (1.40-6.50); %Basophils 1.0 % (0.0-1.0); %Eosinophils 2.0 % (0.0-10.0); %Lymphocytes 27.4 % (21.0-51.0); %Monocytes 10.1 % (0.0-10.0); %Neutrophils 59.5 % (42.0-75.0); Hematocrit 34.7 % (36.0-47.0); Hemoglobin 12.1 g/dL (12.0-16.0); Mean Corpuscular Hemoglobin 29.2 pg (27.0-31.0); Mean Corpuscular Volume 83.9 fl (78.0-98.0); Platelet Count 306 10x3/uL (130-400); Red Blood Cell (RBC) Count 4.13 mill/uL (4.20-5.40); White Blood Cell (WBC) Count 7.6 10x3/uL (4.8-10.8)
[2025-01-28 07:21] LABS: ALT (SGPT) 45 U/L (Less than 34); AST (SGOT) 53 U/L (11-34); Albumin 2.9 g/dL (3.1-4.5); Alkaline Phosphatase 118 U/L (40-110); Anion Gap 17 mmol/L (10-20); BUN (Urea Nitrogen) 53 mg/dL (9.8-20.1); Bilirubin, Total 0.2 mg/dL (0.3-1.2); Calc. Creatinine Clearance 39 mL/min (70-130); Calcium 9.4 mg/dL (7.8-10.44); Carbon Dioxide 20 mmol/L (23-31); Chloride 108 mmol/L (98-107); Globulin 3.7 g/dL (2.4-3.5); Glucose 115 mg/dL (83-110); Potassium 4.7 mmol/L (3.5-5.1); Sodium 140 mmol/L (136-145)
[2025-01-28] MEDS: Lisinopril 20 MG TAB PO SCH (08:30)
[2025-01-28] MEDS: metFORMIN 500 MG TAB PO SCH (08:32)
[2025-01-28] MEDS: Famotidine 20 MG TAB PO SCH (08:32)
[2025-01-28] MEDS: Multivit, Therapeutic 1 TAB PO SCH (08:32)
[2025-01-28] MEDS: Mirabegron ER 25 MG ER.TAB PO SCH (08:32)
[2025-01-28] MEDS ORDERED: SOLIFENACIN SUCCINATE 5 MG PO SCH (09:00)
[2025-01-28] MEDS ORDERED: Non-Formulary Item 1 EACH (Benazepril Hcl [Lotensin] 40 MG Tablet) PO SCH (09:00)
[2025-01-28] MEDS ORDERED: Non-Formulary Item 1 EACH (Multivitamin [Multivitamin] 1 EACH Tablet) PO SCH (09:00)
[2025-01-28] MEDS ORDERED: Non-Formulary Item 1 EACH (Hydralazine Hcl [Hydralazine Hcl] 50 MG Tablet) PO SCH (09:00)
[2025-01-28] MEDS ORDERED: SIMVASTATIN 20 MG PO SCH (21:00)
[2025-01-28] MEDS: Aspirin 81 mg Enteric Coated Tablet PO SCH (21:26)
[2025-01-29] MEDS: Famotidine 20 MG TAB PO SCH (09:40)
[2025-01-29 12:21] VITALS: BMI 22.6
[2025-01-29] MEDS: Acetaminophen 325 MG TAB PO PRN (14:38)
[2025-02-04] MEDS: Lisinopril 20 MG TAB PO SCH (09:58)
[2025-02-06] MEDS: Bisacodyl 10 MG SUPP PR PRN (00:14)
[2025-02-09 04:56] LABS: #Basophils 0.1 thou/uL (0.0-0.2); #Eosinophils 0.3 thou/uL (0.0-0.7); #Lymphocytes 1.8 thou/uL (1.20-3.40); #Monocytes 0.4 thou/uL (0.11-0.59); #Neutrophils 3.4 thou/uL (1.40-6.50); %Basophils 1.1 % (0.0-1.0); %Eosinophils 4.6 % (0.0-10.0); %Lymphocytes 30.1 % (21.0-51.0); %Monocytes 6.5 % (0.0-10.0); %Neutrophils 57.6 % (42.0-75.0); Hematocrit 30.5 % (36.0-47.0); Hemoglobin 10.9 g/dL (12.0-16.0); Mean Corpuscular Hemoglobin 29.8 pg (27.0-31.0); Mean Corpuscular Volume 83.2 fl (78.0-98.0); Platelet Count 235 10x3/uL (130-400); Red Blood Cell (RBC) Count 3.66 mill/uL (4.20-5.40); White Blood Cell (WBC) Count 5.9 10x3/uL (4.8-10.8)
[2025-02-09 05:18] LABS: ALT (SGPT) 486 U/L (Less than 34); AST (SGOT) 261 U/L (11-34); Albumin 2.7 g/dL (3.1-4.5); Alkaline Phosphatase 288 U/L (40-110); Anion Gap 15 mmol/L (10-20); BUN (Urea Nitrogen) 28 mg/dL (9.8-20.1); Bilirubin, Total 0.7 mg/dL (0.3-1.2); Calc. Creatinine Clearance 48 mL/min (70-130); Calcium 9.1 mg/dL (7.8-10.44); Carbon Dioxide 19 mmol/L (23-31); Chloride 109 mmol/L (98-107); Globulin 3.4 g/dL (2.4-3.5); Glucose 101 mg/dL (83-110); Potassium 4.1 mmol/L (3.5-5.1); Sodium 139 mmol/L (136-145)
[2025-02-10] MEDS: Lisinopril 20 MG TAB PO SCH (08:30)
[2025-02-10] MEDS: Mirabegron ER 25 MG ER.TAB PO SCH (08:30)
[2025-02-19 05:56] VITALS: TEMP 97.8
[2025-02-19 07:59] VITALS: BP 130/79
== END 2025-02-19 09:12 | disposition home or self-care (01) | DRG 946 ==
LOC: BURMED 21:59
PROVIDERS: ADMIT Family Medicine; ATTEND Family Medicine
PROC: F07Z5ZZ Bed Mobility Treatment (ICD-10-PCS; principal; 2025-01-28)
PROC: F08Z0ZZ Bathing/Showering Techniques Treatment (ICD-10-PCS; 2025-01-28)
DX: R53.81 Other malaise (principal); E11.9 Type 2 diabetes mellitus without complications; I10 Essential (primary) hypertension; E78.5 Hyperlipidemia, unspecified; R74.01 Elevation of levels of liver transaminase levels; F03.90 Unspecified dementia, unspecified severity, without behavioral disturbance, psychotic disturbance, mood disturbance, and anxiety; K59.00 Constipation, unspecified; R41.81 Age-related cognitive decline; R26.89 Other abnormalities of gait and mobility; Z79.899 Other long term (current) drug therapy; Z98.890 Other specified postprocedural states; N32.81 Overactive bladder
CPT/HCPCS: 36415; 80053; 85025